=== PATIENT | male | born 1965 | race Caucasian/White ===

== ENCOUNTER 2016-07-03 11:04 | Emergency (ER) | payer OTHER ==
[~2016-07-03 11:04] MED LIST: IBUPROFEN PO; LEVAQUIN PO; NO MEDICATIONS; PROMETHAZINE-D240 ML PO
== END 2016-07-03 13:10 | disposition home or self-care (01) ==
LOC: SED 11:04
DX: L02.416 Cutaneous abscess of left lower limb (principal); F17.200 Nicotine dependence, unspecified, uncomplicated
CPT/HCPCS: 10060; 96365; 96375; 99284; J2270; J2405